=== PATIENT | male | born 1995 | race African-American/Black ===

== ENCOUNTER 2019-06-19 22:07 | Emergency (ER) | payer SELFPAY ==
[2019-06-20] MEDS ORDERED: IPRATROPIUM/ALBUTEROL 0.5-2.5 MG/3 ML AMPUL NEB ONE ×2 (00:05→00:18)
[2019-06-20] MEDS ORDERED: METHYLPREDNISOLONE INJ 125 MG/2 ML SDV IV ONE (00:18)
--- NOTE | 2019-06-20 00:21 | ER Document Report ---
ED General - General Chief Complaint: Asthma Exacerbation Stated Complaint: ASTHMA ATTACK Time Seen by Provider: 06/20/19 00:11 Mode of Arrival: Ambulatory Information source: Patient, [facility] Records Notes: 23-year-old male with a history of asthma presents with complaint of cough, shortness of breath and wheezing that started 4 hours prior to arrival. Patient states that he does not have a rescue inhaler at home. He was sent home from work for significant wheezing. He denies any known exposures, history of intubation, fever, chills. - HPI Onset: This evening Onset/Duration: Gradual, Persistent, Worse Quality of pain: Other - Chest tightness Severity: Mild Associated symptoms: Nonproductive cough, Shortness of breath. denies: Chest pain, Diarrhea, Fever, Headache, Nausea, Vomiting, Slow to respond, Sweating, Weakness Exacerbated by: Denies Relieved by: Denies Similar symptoms previously: Yes Recently seen / treated by doctor: Yes - Related Data Allergies/Adverse Reactions: No Known Allergies Allergy (Verified 06/20/19 00:10) Past Medical History - General Information source: Patient - Social History Smoking Status: Never Smoker Frequency of alcohol use: None Drug Abuse: None Lives with: Family Family History: Reviewed & Not Pertinent Patient has suicidal ideation: No Patient has homicidal ideation: No Pulmonary Medical History: Reports: Hx Asthma Review of Systems - Review of Systems Notes: REVIEW OF SYSTEMS: CONSTITUTIONAL : Denies fever, chills, or sweats. Denies recent illness. Denies weight loss, recent hospitalizations. EENT: Denies visual changes, eye pain. Denies sore throat, oral lesions, difficulty swallowing. CARDIOVASCULAR: Denies chest pain. Denies palpitations. Denies lower extremity edema. RESPIRATORY: + cough. + shortness of breath, wheezing. GASTROINTESTINAL: Denies abdominal pain or distention. Denies nausea, vomiting, or diarrhea. Denies blood in vomitus, stools, or per rectum. Denies black, tarry stools. Denies constipation. GENITOURINARY: Denies difficulty urinating, painful urination, frequency, blood in urine, testicular pain or penile discharge. MUSCULOSKELETAL: Denies back or neck pain or stiffness. Denies joint pain or swelling. SKIN: Denies rash, lesions or sores. HEMATOLOGIC : Denies easy bruising or bleeding. LYMPHATIC: Denies swollen glands. NEUROLOGICAL: Denies confusion or altered mental status. Denies loss of consciousness. Denies dizziness or lightheadedness. Denies headache. Denies weakness or paralysis. Denies problems difficulty with ambulation, slurred speech. Denies sensory loss, numbness, or tingling. Denies seizures. PSYCHIATRIC: Denies anxiety or stress. Denies depression, suicidal ideation, or Physical Exam - Vital signs Vitals: Temp Pulse Resp BP Pulse Ox 98.4 F 81 18 150/80 H 96 06/19/19 22:11 06/19/19 22:11 06/19/19 22:11 06/19/19 22:11 06/19/19 22:11 - Notes Notes: PHYSICAL EXAMINATION: GENERAL: Well-appearing, well-nourished and in no acute distress. HEAD: Atraumatic, normocephalic. EYES: Pupils equal round and reactive to light, extraocular movements intact, sclera anicteric, conjunctiva are normal. ENT: Nares patent, oropharynx clear without exudates. Moist mucous membranes. NECK: Normal range of motion, supple without lymphadenopathy LUNGS: Diffuse expiratory wheezing. No increased work of breathing, no accessory muscle use. HEART: Regular rate and rhythm without murmurs ABDOMEN: Soft, nontender, nondistended abdomen. No guarding, no rebound. No masses appreciated. Musculoskeletal: Normal range of motion, no pitting or edema. No cyanosis. NEUROLOGICAL: Cranial nerves grossly intact. Normal speech, normal gait. Normal sensory, motor exams PSYCH: Normal mood, normal affect. SKIN: Warm, Dry, normal turgor, no rashes or lesions noted. Course - Re-evaluation Re-evalutation: Chest X-Ray 06/20/19 00:19 IMPRESSION: No acute findings. No focal lung consolidation. Temp Pulse Resp BP Pulse Ox 98.4 F 81 18 150/80 H 96 06/19/19 22:11 06/19/19 22:11 06/19/19 22:11 06/19/19 22:11 06/19/19 22:11 06/20/19 01:35 Patient presents with a mild exacerbation of their baseline asthma. Mild wheezing at time of presentation but vitals do not show significant hypoxemia or tachypnea. No retractions. Patient did clinically improve after receiving nebulizers here in the emergency department. Chest x-ray without evidence of an acute pneumonia. Patient able to ambulate without any respiratory distress. Based on patient's overall reassuring assessment, I believe they are stable for outpatient management with steroids. I do not suspect an acute alternative pathology at this time based on history and exam including acute pulmonary emb olus, ACS, pneumothorax, or aortic dissection. At this time will discharge with return precautions and follow-up recommendations. Verbal discharge instructions given a the bedside and opportunity for questions given. Medication warnings reviewed. Patient is in agreement with this plan and has verbalized understanding of return precautions and the need for primary care follow-up in the next 24-72 hours. - Vital Signs Vital signs: Temp Pulse Resp BP Pulse Ox 98.5 F 84 16 148/84 H 96 06/20/19 02:04 06/20/19 02:04 06/20/19 02:04 06/20/19 02:04 06/19/19 22:11 - Diagnostic Test Radiology reviewed: Image reviewed, Reports reviewed Discharge - Discharge Clinical Impression: Asthma exacerbation Qualifiers: Asthma severity: mild Asthma persistence: intermittent Qualified Code(s): J45.21 - Mild intermittent asthma with (acute) exacerbation Condition: Good Disposition: HOME, SELF-CARE Instructions: Asthma ([facility]) Additional Instructions: You were seen for an asthma exacerbation. Your symptoms improved with treatment here in the emergency department. However, it is very important that you return to the emergency department immediately if you began to have worsening difficulty breathing that does not respond to your normal home nebulizers. You are also being sent home on a five-day course of steroids that you should start taking tomorrow. Please also follow closely with your primary care physician. you should also return to emergency department if you develop fever greater than 101, persistent cough, persistent vomiting, pass out, or any other symptoms that are concerning to you. Prescriptions: Prednisone [Deltasone 20 mg Tablet] 3 tab PO DAILY 5 Days #15 tablet Forms: Elevated Blood Pressure
--- NOTE | 2019-06-20 01:24 | RADIOLOGY REPORT (SQ) ---
EXAM DESCRIPTION: XR CHEST 2 VIEWS COMPLETED DATE/TME: 06/20/2019 00:19 CLINICAL HISTORY: 23 years, Male, sob Comparison: None FINDINGS: No focal lung consolidation. No pleural effusion. No pneumothorax. Cardiac and mediastinal silhouette is unremarkable. No acute osseous abnormality. Soft tissues are unremarkable. IMPRESSION: No acute findings. No focal lung consolidation.
[2019-06-20] MEDS ORDERED: ALBUTEROL SULFATE HFA (90 MCG/PUFF) 8 GM MDI (1 MDI/ER DISP) IH PRN (01:37)
[2019-06-20 02:06] VITALS: BP 148/84
== END 2019-06-20 02:04 | disposition home or self-care (01) ==
LOC: ER 22:07
DX: J45.21 Mild intermittent asthma with (acute) exacerbation (principal); R05 Cough; R06.02 Shortness of breath
CPT/HCPCS: 94640; 99284; 96374; 71046; J2930; J3490; J7620

== ENCOUNTER 2019-08-27 17:11 | Emergency (ER) | payer BC ==
[2019-08-27] MEDS ORDERED: DEXAMETHASONE SOD PHOS INJ 10 MG/1 ML VIAL IM ONE (17:41)
[2019-08-27] MEDS ORDERED: IPRATROPIUM/ALBUTEROL 0.5-2.5 MG/3 ML AMPUL NEB ONE (17:41)
--- NOTE | 2019-08-27 17:41 | ER Document Report ---
ED Medical Screen (RME) - General Chief Complaint: Shortness Of Breath Stated Complaint: ASTHMA SHORTNESS OF BREATH Time Seen by Provider: 08/27/19 17:37 Mode of Arrival: Ambulatory Information source: Patient Notes: No 24-year-old male presented to ED for shortness of breath difficulty breathing tightness in the chest. He does have a history of asthma. He states this started this morning he does not have an inhaler at home. He states he tried to stand at work today when he got home he tried to shower but is not feeling any better. He is having a little bit of an expiratory wheeze at this time. He is alert oriented respirations regular nonlabored speaking in full sentences walks with even steady gait. I have greeted and performed a rapid initial assessment of this patient. A comprehensive ED assessment and evaluation of the patient, analysis of test results and completion of medical decision making process will be conducted by an additional ED providers. TRAVEL OUTSIDE OF THE [place] IN LAST 30 DAYS: No - Related Data Allergies/Adverse Reactions: No Known Allergies Allergy (Verified 06/20/19 00:10) Past Medical History - Social History Frequency of alcohol use: None Drug Abuse: Marijuana Pulmonary Medical History: Reports: Hx Asthma Renal/ Medical History: Denies: Hx Peritoneal Dialysis Physical Exam - Vital signs Vitals: Temp Pulse Resp BP Pulse Ox 99.5 F 77 16 144/72 H 98 08/27/19 17:12 08/27/19 17:12 08/27/19 17:12 08/27/19 17:12 08/27/19 17:12 Course - Vital Signs Vital signs: Temp Pulse Resp BP Pulse Ox 99.5 F 77 16 144/72 H 98 08/27/19 17:12 08/27/19 17:12 08/27/19 17:12 08/27/19 17:12 08/27/19 17:12
[2019-08-27] MEDS: ALBUTEROL SULFATE 0.083% NEB 2.5 MG/3 ML AMPUL NEB SCH ×2 (17:54→18:16)
--- NOTE | 2019-08-27 18:11 | RADIOLOGY REPORT (SQ) ---
EXAM DESCRIPTION: CHEST 2 VIEWS COMPLETED DATE/TIME: 08/27/2019 5:53 pm REASON FOR STUDY: Asthma exacerbation COMPARISON: Chest x-ray 06/20/2019. EXAM PARAMETERS: NUMBER OF VIEWS: two views TECHNIQUE: Digital Frontal and Lateral radiographic views of the chest acquired. RADIATION DOSE: NA LIMITATIONS: none FINDINGS: LUNGS AND PLEURA: No consolidation, pneumothorax or pleural effusion. MEDIASTINUM AND HILAR STRUCTURES: No masses or contour abnormalities. HEART AND VASCULAR STRUCTURES: Heart normal size. No evidence for failure. BONES: No acute findings. HARDWARE: None in the chest. IMPRESSION: NO ACUTE RADIOGRAPHIC FINDING IN THE CHEST. TECHNICAL DOCUMENTATION: JOB ID: [id number] 2010 [employer]- All Rights Reserved Reading location - IP/workstation name: [email or web address]
--- NOTE | 2019-08-27 20:18 | ER Document Report ---
ED General - General Chief Complaint: Shortness Of Breath Stated Complaint: ASTHMA SHORTNESS OF BREATH Time Seen by Provider: 08/27/19 17:37 Mode of Arrival: Ambulatory TRAVEL OUTSIDE OF THE [place] IN LAST 30 DAYS: No - HPI Notes: This is a 24-year-old gentleman with a history of asthma who presents with complaint of an asthma exacerbation that started earlier today. Patient yara cribes a nonproductive cough, wheezing. Patient states that he ran out of his albuterol for his nebulizer. He just moved here from [place]. He denies any fever or chills. He denies any chest pain. Describes symptoms as moderate. There are no obvious aggravating or relieving factors. Patient was given DuoNeb and for the Medrol IM prior to my evaluation. He feels fine now. Denies any symptoms at this time. - Related Data Allergies/Adverse Reactions: No Known Allergies Allergy (Verified 06/20/19 00:10) Past Medical History - General Information source: Patient - Social History Smoking Status: Never Smoker Frequency of alcohol use: None Drug Abuse: Marijuana Family History: Reviewed & Not Pertinent Patient has suicidal ideation: No Patient has homicidal ideation: No Pulmonary Medical History: Reports: Hx Asthma Renal/ Medical History: Denies: Hx Peritoneal Dialysis Review of Systems - Review of Systems Cardiovascular: denies: Chest pain, Palpitations, Heart racing Respiratory: Cough, Wheezing. denies: Sputum -: Yes All other systems reviewed and negative Physical Exam - Vital signs Vitals: Temp Pulse Resp BP Pulse Ox 99.5 F 77 16 144/72 H 98 08/27/19 17:12 08/27/19 17:12 08/27/19 17:12 08/27/19 17:12 08/27/19 17:12 - General General appearance: Appears well, Alert - Respiratory Respiratory status: No respiratory distress Chest status: Nontender Breath sounds: Normal - Lungs are clear to auscultation bilaterally. However, patient has been given a DuoNeb prior to my evaluation. I suspect he was wheezi ng earlier. Chest palpation: Normal - Cardiovascular Rhythm: Regular Heart sounds: Normal auscultation Murmur: No - Neurological Neuro grossly intact: Yes Cognition: Normal Orientation: AAOx4 [place] Coma Scale Eye Opening: Spontaneous [place] Coma Scale Verbal: Oriented [place] Coma Scale Motor: Obeys Commands Barnett Coma Scale Total: 15 Speech: Normal Motor strength normal: LUE, RUE, LLE, RLE Sensory: Normal - Psychological Associated symptoms: Normal affect, Normal mood - Skin Skin Temperature: Warm Skin Moisture: Dry Skin Color: Normal Course - Re-evaluation Re-evalutation: 08/27/19 20:16 Clinical picture suggest asthma exacerbation. Patient is doing well. He is stable for discharge. Chest x-ray negative. - Vital Signs Vital signs: Temp Pulse Resp BP Pulse Ox 99.5 F 77 16 144/72 H 98 08/27/19 17:12 08/27/19 17:12 08/27/19 17:12 08/27/19 17:12 08/27/19 17:12 Discharge - Discharge Clinical Impression: Asthma exacerbation Qualifiers: Asthma severity: unspecified severity Asthma persistence: unspecified Qualified Code(s): J45.901 - Unspecified asthma with (acute) exacerbation Condition: Good Disposition: HOME, SELF-CARE Instructions: Asthma ([facility]) Prescriptions: Albuterol Sulfate [Albuterol Sulfate 5mg/1 mL] 5 mg NEB Q4 PRN #30 ml PRN Reason: Prednisone [Deltasone 20 mg Tablet] 3 tab PO DAILY 5 Days #15 tablet Albuterol Sulfate [Proair HFA Inhalation Aerosol 8.5 gm MDI] 2 puff IH Q4H PRN #1 mdi PRN Reason: Referrals: [facility] [NO LOCAL MD] - Follow up as needed
[2019-08-27 20:40] VITALS: BP 130/75
== END 2019-08-27 20:40 | disposition home or self-care (01) ==
LOC: ER 17:11
DX: J45.901 Unspecified asthma with (acute) exacerbation (principal); R05 Cough; F12.10 Cannabis abuse, uncomplicated
CPT/HCPCS: 94640 ×2; 99284; 96374; 71046; J1100; J7620

== ENCOUNTER 2020-01-07 09:49 | Emergency (ER) | payer BC ==
--- NOTE | 2020-01-07 09:57 | ER Document Report ---
ED Medical Screen (RME) - General Stated Complaint: GROIN PAIN Time Seen by Provider: 01/07/20 09:55 Notes: General Inspector: Estelle KOCH 24 y/o male presents with "area on my private area" that is swollen/painful for 2-3 weeks. States had previously but "it went away." Denies any testicular pain or penile discharge. APproximately 3 cm area of swelling noted to left scrotum with mild tenderness. I have greeted and performed a rapid initial assessment of this patient. A compr ehensive ED assessment and evaluation of the patient, analysis of test results and completion of the medical decision making process with be conducted by additional ED providers. TRAVEL OUTSIDE OF THE [place] IN LAST 30 DAYS: No - Related Data Allergies/Adverse Reactions: No Known Allergies Allergy (Verified 01/07/20 09:54) Past Medical History Pulmonary Medical History: Reports: Hx Asthma Renal/ Medical History: Denies: Hx Peritoneal Dialysis Physical Exam - Vital signs Vitals: Temp Pulse Resp BP Pulse Ox 98 F 72 18 153/95 H 100 01/07/20 09:50 01/07/20 09:50 01/07/20 09:50 01/07/20 09:50 01/07/20 09:50 Course - Vital Signs Vital signs: Temp Pulse Resp BP Pulse Ox 98 F 72 18 153/95 H 100 01/07/20 09:50 01/07/20 09:50 01/07/20 09:50 01/07/20 09:50 01/07/20 09:50
[2020-01-07 10:33] LABS: ABSOLUTE EOSINOPHILS # (AUTO) 0.1 10^3/uL (0.0-0.6); ABSOLUTE LYMPHOCYTES (AUTO) 1.2 10^3/uL (0.5-4.7); ABSOLUTE MONOCYTES (AUTO) 0.5 10^3/uL (0.1-1.4); ABSOLUTE NEUT (AUTO) 5.5 10^3/uL (1.7-8.2); BASOPHILS % (AUTO) 0.5 % (0-2); EOSINOPHILS % (AUTO) 1.9 % (0-6); HEMATOCRIT 45.2 % (37.9-51.0); HEMOGLOBIN 15.6 g/dL (13.5-17.0); LYMPHOCYTES % (AUTO) 16.6 % (13-45); MEAN CORPUSCULAR HEMOGLOBIN 32.6 pg (27.0-33.4); MEAN CORPUSCULAR HGB CONC 34.5 g/dL (32.0-36.0); MEAN CORPUSCULAR VOLUME 94 fl (80-97); MONOCYTES % (AUTO) 7.2 % (3-13); PLATELET COUNT 165 10^3/uL (150-450); RED CELL DISTRIBUTION WIDTH 12.5 % (11.5-14.0); SEGMENTED NEUTROPHILS % (AUTO) 73.8 % (42-78); TOTAL CELLS COUNTED % (AUTO) 100 %; WHITE BLOOD COUNT 7.4 10^3/uL (4.0-10.5)
--- NOTE | 2020-01-07 10:39 | ER Document Report ---
ED General - General Chief Complaint: Abscess Stated Complaint: GROIN PAIN Time Seen by Provider: 01/07/20 09:55 Mode of Arrival: Ambulatory Information source: Patient Notes: 24-year-old black male arrives with a 1 month history of left testicle abscess laterally which began as a small pinhead bump and then progressed into a quarter sized abscess that expressed some white cheesy material around 2 weeks ago. He denies any new soaps and has been using Dove soap all his life. He work last night at [employer] and he had severe pain in his left testicle. Today he began to have right upper quadrant pain with no associated dysuria diarrhea constipation nausea or vomiting. TRAVEL OUTSIDE OF THE [place] IN LAST 30 DAYS: No - HPI Onset: Other - x 3-4 weeks Onset/Duration: Sudden Quality of pain: Sharp Severity: Mild Pain Level: 1 - Related Data Allergies/Adverse Reactions: No Known Allergies Allergy (Verified 01/07/20 09:54) Past Medical History - General Information source: Patient - Social History Smoking Status: Current Every Day Smoker - Patient admits to smoking marijuana but stopped 1 week ago because of his job. He has been smoking marijuana for years Cigarette use (# per day): Yes Chew tobacco use (# tins/day): No Smoking Education Provided: Yes Frequency of alcohol use: Social Drug Abuse: Marijuana Lives with: Family Family History: Reviewed & Not Pertinent Patient has suicidal ideation: No Patient has homicidal ideation: No Pulmonary Medical History: Reports: Hx Asthma Renal/ Medical History: Denies: Hx Peritoneal Dialysis Review of Systems - Review of Systems Constitutional: No symptoms reported EENT: No symptoms reported Cardiovascular: No symptoms reported Respiratory: No symptoms reported Gastrointestinal: See HPI, Abdominal pain. denies: Diarrhea, Nausea, Vomiting, Constipation, Blood streaked bowels, Poor appetite, Poor fluid intake, Blood in vomit, Black stools Genitourinary: See HPI, Other - Left lateral scrotum with abscess around 2 and half centimeters diameter tender to palpation; patient reports over 24 hours he has had some associated irritation to his medial thigh which touches this area of his scrotum as well. Male Genitourinary: No symptoms reported Musculoskeletal: No symptoms reported Skin: No symptoms reported Hematologic/Lymphatic: No symptoms reported Neurological/Psychological: No symptoms reported Physical Exam - Vital signs Vitals: Temp Pulse Resp BP Pulse Ox 98 F 72 18 153/95 H 100 01/07/20 09:50 01/07/20 09:50 01/07/20 09:50 01/07/20 09:50 01/07/20 09:50 Interpretation: Hypertensive - General General appearance: Alert - HEENT Head: Normocephalic Eyes: Normal Conjunctiva: Normal Cornea: Normal Extraocular movements intact: Yes Eyelashes: Normal Pupils: PERRL Sinus: Normal Nasal: Normal Mouth/Lips: Normal Mucous membranes: Normal Pharynx: Normal Neck: Normal - Respiratory Respiratory status: No respiratory distress Chest status: Nontender Breath sounds: Normal Chest palpation: Normal - Cardiovascular Rhythm: Regular Heart sounds: Normal auscultation Murmur: No Friction rub: No Jeovanny's crunch: No - Abdominal Inspection: Normal Distension: No distension Bowel sounds: Normal Tenderness: Nontender Organomegaly: No organomegaly - Genitourinary Tenderness: Testicle tender - Left lateral skin of scrotum with abscess approximately 2 and half centimeters diameter; Cremasteric reflex: Normal Scrotum: Redness - To left - Back Back: Normal - Extremities General upper extremity: Normal inspection General lower extremity: Normal inspection - Neurological Neuro grossly intact: Yes Cognition: Normal Orientation: AAOx4 [place] Coma Scale Eye Opening: Spontaneous [place] Coma Scale Verbal: Oriented - Psychological Associated symptoms: Normal affect - Skin Skin Temperature: Warm Skin Moisture: Dry Skin Color: Normal, Other - For left testicle skin abscess as per Skin Turgor: Loose Course - Vital Signs Vital signs: Temp Pulse Resp BP Pulse Ox 98 F 72 18 153/95 H 100 01/07/20 09:50 01/07/20 09:50 01/07/20 09:50 01/07/20 09:50 01/07/20 09:50 - Laboratory Result Diagrams: 01/07/20 10:15 01/07/20 10:15 Laboratory results interpreted by me: 01/07/20 10:15 Total Protein 8.3 H - Diagnostic Test Radiology reviewed: Reports reviewed - CT scan of abdomen pelvis within normal limits and also ultrasound of scrotum reveals testicles within normal limits and left scrotal abscess only Critical Care Note - Critical Care Note Total time excluding time spent on procedures (mins): 90 Discharge - Discharge Clinical Impression: Scrotal abscess Abdominal pain Qualifiers: Abdominal location: right upper quadrant Qualified Code(s): R10.11 - Right upper quadrant pain Hypertension Qualifiers: Hypertension type: unspecified Qualified Code(s): I10 - Essential (primary) hypertension Condition: Good Disposition: HOME, SELF-CARE Additional Instructions: Follow-up this week with Melissa Joseph urology with [facility]. May also follow-up with local surgeon of choice. Take medicine as directed return to ER as needed off work as directed from [employer]. Also wash skin lesion of scrotum with Hibiclens on a daily basis. Do not wash with harshness but just apply this gently for about 5 or 10 minutes then rinse off with cool water. Prescriptions: Chlorhexidine Gluconate [Antiseptic Skin Cleanser] 5 ml TP DAILY #1 bottle Sulfamethoxazole/Trimethoprim [Bactrim Ds Tablet] 2 tab PO BID #20 tablet Cephalexin Monohydrate [Keflex 500 mg Capsule] 500 mg PO BID 5 Days #20 capsule Etodolac [Lodine] 400 mg PO BID PRN #10 tablet PRN Reason: Pain Scale Of 1 Forms: Return to Work
[2020-01-07 10:48] LABS: ALBUMIN 4.9 g/dL (3.5-5.0); ALKALINE PHOSPHATASE 84 U/L (38-126); ANION GAP 11 (5-19); ASPARTATE AMINO TRANSFERASE 30 U/L (17-59); BILIRUBIN,DIRECT 0.2 mg/dL (0.0-0.4); BILIRUBIN,TOTAL 0.8 mg/dL (0.2-1.3); BLOOD UREA NITROGEN 17 mg/dL (7-20); CALCIUM 10.2 mg/dL (8.4-10.2); CARBON DIOXIDE 28 mmol/L (22-30); CHLORIDE 103 mmol/L (98-107); GLUCOSE 87 mg/dL (75-110); POTASSIUM 4.4 mmol/L (3.6-5.0); TOTAL PROTEIN 8.3 g/dL (6.3-8.2)
--- NOTE | 2020-01-07 11:27 | RADIOLOGY REPORT (SQ) ---
EXAM DESCRIPTION: U/S SCROTUM W/DOPPLER COMPLETED DATE/TIME: 01/07/2020 11:08 am REASON FOR STUDY: left testicle pain COMPARISON: None. TECHNIQUE: Static and realtime garland scale imaging of the scrotum and testes. Selected color Doppler and spectral images recorded to document blood flow. LIMITATIONS: None. FINDINGS: RIGHT: TESTICLE: Normal size. Normal echotexture. Normal blood flow. No mass. EPIDIDYMIS: Normal. HYDROCELE OR VARICOCELE: No. HERNIA OR EXTRA-TESTICULAR MASS: No. LEFT: TESTICLE: Normal size. Normal echotexture. Normal blood flow. No mass. EPIDIDYMIS: Normal. HYDROCELE OR VARICOCELE: No. HERNIA OR EXTRA-TESTICULAR MASS: No. OTHER: Corresponding to a palpable abnormalities the subcutaneous slightly ill-defined hypoechoic are a which may have a tract to the surface. This measures close to 4 cm in could represent an infectiou s inflammatory etiology. Possible forming abscess, sebaceous cyst or similar. IMPRESSION: 1. Testes look normal. No testicular mass or torsion, significant hydrocele or varicocele or evidenc e of hernia. 2. Subcutaneous/skin lesion as above. Differential as described. TECHNICAL DOCUMENTATION: JOB ID: [id number] 2010 [employer]- All Rights Reserved Reading location - IP/workstation name: [email or web address]
[2020-01-07] MEDS ORDERED: LORAZEPAM INJ 2 MG/1 ML VIAL IV ONE ×2 (11:54→12:40)
[2020-01-07 12:01] LABS: CHLAM PCR NOT DETECTED (NOT DETECT)
--- NOTE | 2020-01-07 12:18 | RADIOLOGY REPORT (SQ) ---
EXAM DESCRIPTION: CT ABD/PELVIS WITH IV ONLY COMPLETED DATE/TIME: 01/07/2020 12:07 pm REASON FOR STUDY: ruq pain COMPARISON: None. TECHNIQUE: CT scan of the abdomen and pelvis performed using helical scanning technique with dynamic intravenous contrast injection. No oral contrast. Images reviewed with lung, soft tissue, and bone windows. Reconstructed coronal and sagittal MPR images reviewed. Delayed images for evaluation of the urinary system also acquired. All images stored on PACS. All CT scanners at this facility use dose modulation, iterative reconstruction, and/or weight based d osing when appropriate to reduce radiation dose to as low as reasonably achievable (ALARA). [facility]: Dose Right [facility]: CareDose [facility]: Dose Right [facility]: Teradose 4D [facility]: [employer] CONTRAST TYPE AND DOSE: contrast/concentration: Isovue 350.00 mg/ml; Total Contrast Delivered: 71.0 ml; Total Saline Delivered: 36.0 ml RENAL FUNCTION: BUN 17 creatinine 0.87. RADIATION DOSE: CT Rad equipment meets quality standard of care and radiation dose reduction techniq ues were employed. CTDIvol: 4.8 - 4.9 mGy. DLP: 472 mGy-cm.. LIMITATIONS: None. FINDINGS: LOWER CHEST: No significant findings. No nodules or infiltrates. LIVER: Normal size. No masses. No dilated ducts. SPLEEN: Normal size. No focal lesions. PANCREAS: No masses. No significant calcifications. No adjacent inflammation or peripancreatic fluid collections. Pancreatic duct not dilated. GALLBLADDER: No identified stones by CT criteria. No inflammatory changes to suggest cholecystitis. ADRENAL GLANDS: No significant masses or asymmetry. RIGHT KIDNEY AND URETER: No solid masses. No significant calcifications. No hydronephrosis or hyd roureter. LEFT KIDNEY AND URETER: No solid masses. No significant calcifications. No hydronephrosis or hydr oureter. AORTA AND VESSELS: No aneurysm. No dissection. Renal arteries, SMA, celiac without stenosis. RETROPERITONEUM: No retroperitoneal adenopathy, hemorrhage or masses. BOWEL AND PERITONEAL CAVITY: No masses or inflammatory changes. No free fluid or peritoneal masses. APPENDIX: Not visualized. PELVIS: No mass. No free fluid. Normal bladder. ABDOMINAL WALL: No masses. No hernias. BONES: No significant or acute findings. OTHER: No other significant finding. IMPRESSION: NO SIGNIFICANT OR ACUTE FINDING IN THE ABDOMEN OR PELVIS ON CT SCAN WITH IV CONTRAST. TECHNICAL DOCUMENTATION: JOB ID: [id number] Quality ID # [id number]: Final reports with documentation of one or more dose reduction techniques (e.g., Au tomated exposure control, adjustment of the mA and/or kV according to patient size, use of iterative reconstruction technique) 2010 [employer]- All Rights Reserved Reading location - IP/workstation name: [email or web address]
[2020-01-07] MEDS ORDERED: FENTANYL CITRATE INJ/PF 100 MCG/2 ML AMPUL IV ONE (12:40)
[2020-01-07 13:24] LABS: APPEARANCE,URINE CLEAR; BILIRUBIN,URINE NEGATIVE (NEGATIVE); COLOR,URINE YELLOW; GLUCOSE, URINE NEGATIVE (NEGATIVE); KETONES,URINE 80 mg/dL (NEGATIVE); LEUKOCYTE ESTERASE,URINE NEGATIVE (NEGATIVE); NITRITE,URINE NEGATIVE (NEGATIVE); PROTEIN,URINE 30 mg/dL (NEGATIVE); URINE SPECIFIC GRAVITY 1.056; UROBILINOGEN,URINE NEGATIVE mg/dL (<2.0)
[2020-01-07 13:47] VITALS: BP 150/70
== END 2020-01-07 13:42 | disposition home or self-care (01) ==
LOC: ER 09:49
DX: N49.2 Inflammatory disorders of scrotum (principal); R10.11 Right upper quadrant pain; I10 Essential (primary) hypertension; F17.210 Nicotine dependence, cigarettes, uncomplicated; F12.11 Cannabis abuse, in remission; J45.909 Unspecified asthma, uncomplicated
CPT/HCPCS: 99285; 96374; 96375; 36415; 87086; 85025; 80053; 81001; 87491; 87591; 76870; 93976; 74177; J3010; J2060